=== PATIENT | female | born 1975 | race American Indian/Alaskan Native ===

== ENCOUNTER 2021-09-18 09:51 | Emergency (ER) | payer OTHER ==
[2021-09-18 11:03] VITALS: BP 149/81
--- NOTE | 2021-09-18 13:13 | Emergency Department Report ---
Upper Extremity - HPI Chief Complaint: Extremity Problem,Nontraumatic Stated Complaint: RT SHOULDER PAIN/WORK RELATED Time Seen by Provider: 09/18/21 12:36 Upper Extremity: Right Shoulder Occurred When: 3 Days Mechanism: Hit with Object Severity: mild, moderate Symptoms: Yes Pain with Movement, Yes Limited Range of Movement, No Deformity, No Numbness, No Weakness, No Swelling, No Bruising/Ecchymosis, No Laceration or Abrasion Other History: 46-year-old female presents to the ER today with complaints of right shoulder pain and injury. Patient states that this incident occurred about 3 days ago. Patient states that she was pulling a box containing about 8 ounces of 64 ounces juices from the top shelf and in the process the box fell on top of her right shoulder. She since then she has been having pain in her shoulder and difficulty moving the shoulder due to pain. She has been taking Goody powders with not much relief. She denies any obvious bruising or swelling. She is right-handed. She denies any prior history of issues with her right shoulder in the past. ED Review of Systems ROS: Stated complaint: RT SHOULDER PAIN/WORK RELATED Other details as noted in HPI Comment: All other systems reviewed and negative Constitutional: denies: chills, fever Eyes: denies: eye pain, eye discharge, vision change ENT: denies: ear pain, throat pain, dental pain, hearing loss, epistaxis, congestion Respiratory: denies: cough, shortness of breath, wheezing Cardiovascular: denies: chest pain, palpitations Gastrointestinal: denies: abdominal pain, nausea, diarrhea, constipation, hematemesis, melena, hematochezia Genitourinary: denies: urgency, dysuria, frequency, hematuria, discharge, abnormal menses, dyspareunia Musculoskeletal: arthralgia, myalgia Skin: denies: rash, lesions Neurological: denies: headache, weakness, numbness, paresthesias, confusion, abnormal gait, vertigo Psychiatric: denies: anxiety, depression, auditory hallucinations, visual hallucinations, homicidal thoughts, suicidal thoughts Hematological/Lymphatic: denies: easy bleeding, easy bruising, swollen glands ED Past Medical Hx - Medications Home Medications: Home Medications Medication Instructions Recorded Confirmed Last Taken Type Ketorolac [Toradol] 10 mg PO Q6H PRN #20 tab 09/18/21 Unknown Rx Upper Extremity Exam - Exam General: Vital signs noted. No distress. Alert and acting appropriately. Head and Torso: No HEENT Abnormality, No Neck Tenderness, No Chest/Lungs Abnormality, No Abdominal Tenderness, No Back Tenderness Shoulder Exam: Yes Shoulder Tenderness (Moderate tenderness to palpation to the right shoulder especially anterior right shoulder), Yes Clavicle Tenderness (Moderate tenderness to palpation to the distal aspect of the right clavicle), Yes Shoulder Deformity, No Normal Range of Motion in Shoulder (Range of motion limited to about 90 degrees abduction secondary to pain), No AC Joint Tenderness (Right shoulder) Arm Exam: No Arm/Humerus Tenderness, No Arm Deformity Elbow: Yes Normal Range of Motion in Elbow, No Elbow Tenderness, No Elbow Deformity Forearm: No Forearm Tenderness, No Forearm Deformity, No Pain with Pronation, No Pain with Supination Wrist: Yes Normal ROM in Wrist, No Wrist Tenderness, No Wrist Deformity, No Snuffbox Tenderness, No Pain with Axial Thumb Compression Hand: Yes Normal ROM in Digit(s), No Hand Tenderness, No Hand Deformity, No Digit Tenderness, No Digit(s) Deformity, No Tendon Dysfunction CMS Exam: Yes Normal Distal Pulses, Yes Normal Capillary Refill, Yes Normal Distal Sensation, No Broken Skin ED Course Vital Signs 09/18/21 11:00 Temperature 98.4 F Pulse Rate 72 Respiratory 16 Rate Blood Pressure 149/81 [Left] O2 Sat by Pulse 100 Oximetry ED Medical Decision Making - Radiology Data Radiology results: report reviewed Patient: ALICE FLOWER MR#: [id number] : 1975 Acct:[id number] Age/Sex: 46 / F ADM Date: 09/18/21 Loc: ED Attending Dr: Ordering Physician: RADHA WHITMAN Date of Service: 09/18/21 Procedure(s): XR shoulder 2+V RT Accession Number(s): [id number] cc: RADHA WHITMAN Fluoro Time In Minutes: RIGHT SHOULDER 3 VIEWS INDICATION: Shoulder injury. COMPARISON: None. IMPRESSION: No acute osseous abnormality or joint pathology is detected. The soft tissues are unremarkable. Signer Name: Juan M Cronin Jr, MD Signed: 09/18/2021 1:42 PM Workstation Name: [id number] Transcribed By: TTR Dictated By: JUAN M CRONIN JR, MD Electronically Authenticated By: JUAN M CRONIN JR, MD Signed Date/Time: 09/18/211341 DD/ 41 TD/TT: Critical care attestation.: If time is entered above; I have spent that time in minutes in the direct care of this critically ill patient, excluding procedure time. ED Disposition Clinical Impression: Sprain of shoulder, right Disposition: 01 HOME / SELF CARE / HOMELESS Is pt being admited?: No Does the pt Need Aspirin: No Condition: Stable Instructions: Shoulder Sprain, Elastic Bandage and RICE Therapy Additional Instructions: USe the shoulder immobilizer but no more than 2-3 days. You can apply ice to help with any pain or swelling. Take the Toradol as prescribed to help with any pain. Follow-up with forest resource specialist in 1 to 2 weeks if your symptoms persist. If you do not have an forest resource specialist 1 will be provided for you on discharge. Return to the ER if any if your symptoms changes or worsens in any way. Prescriptions: Ketorolac [Toradol] 10 mg PO Q6H PRN #20 tab PRN Reason: Pain Referrals: KHALIDA MARTINEZ MD [Staff Physician] - 3-5 Days BJORN DE SANTIAGO MD [Staff Physician] - 3-5 Days (Blending Technician ) Forms: Work/School Release Form(ED) Time of Disposition: 13:54
[2021-09-18] MEDS ORDERED: ACETAMINOPHEN 325 MG TAB PO ONE (13:14)
--- NOTE | 2021-09-18 13:47 | XRay Report ---
RIGHT SHOULDER 3 VIEWS INDICATION: Shoulder injury. COMPARISON: None. IMPRESSION: No acute osseous abnormality or joint pathology is detected. The soft tissues are unrem arkable. Signer Name: Juan M Cronin Jr, MD Signed: 09/18/2021 1:42 PM Workstation Name: [id number]
== END 2021-09-18 14:11 | disposition home or self-care (01) ==
LOC: ED 09:51
DX: S43.401A Unspecified sprain of right shoulder joint, initial encounter (principal); X58.XXXA Exposure to other specified factors, initial encounter; Y93.89 Activity, other specified; Y92.89 Other specified places as the place of occurrence of the external cause; Y99.8 Other external cause status
CPT/HCPCS: 99283